=== PATIENT | female | born 1970 | race Caucasian/White ===

== ENCOUNTER 2016-11-03 12:38 | Emergency (ER) | payer MEDICAID ==
--- NOTE | 2016-11-03 13:41 | Emergency Department Record ---
History of Present Illness - General Chief complaint: Pain Stated complaint: ABD PAIN Time Seen by Provider: 11/03/16 13:18 Source: Patient, RN notes reviewed Mode of Arrival: Ambulatory - History of Present Illness Initial comments: fibromyalgia and she ran out of percocet 3 days ago and has been on percocet for 5 years. 10 mg/325 one every 4 hours and currently she took extra because of a flare and ran out of meds. She would like to get off the percocet but now is in withdrawal of the narcotics and she could not get through to Dr. Linda. Diarrhea times 10 over the last 24 hours ago. tremors and jumping out of skin. bilateral leg and arm pain. Total body pain Onset/Timin -: Hour(s) Location: Other History of Same: No Severity scale (1-10): 10 Quality: Sharp Consistency: Constant Improves with: Nothing Worsens with: Nothing Associated Symptoms: Arthralgias, Other - Related Data Home Medications Medication Instructions Recorded Confirmed Last Taken Oxycodone HCl/Acetaminophen 1 each PO Q6H 06/24/14 11/03/16 11/03/16 [Percocet 10-325 mg Tablet] Duloxetine HCl [Cymbalta] 60 mg PO DAILY 11/03/16 11/03/16 11/03/16 Previous Rx's Medication Instructions Recorded Oxycodone HCl/Acetaminophen 1 tab PO Q6H PRN #30 tablet 11/03/16 [Percocet 10mg/325mg] Allergies Allergy/AdvReac Type Severity Reaction Status Date / Time No Known Drug Allergies Allergy Verified 11/03/16 12:50 Travel Screening - Travel/Exposure Within Last 30 Days Have you traveled within the last 30 days?: No - Travel/Exposure Within Last Year Have you traveled outside the [place] in the last year?: No - Additonal Travel Details Have you been exposed to anyone with a communicable illness?: No - Travel Symptoms Symptom Screening: None Review of Systems Reviewed: No additional complaints except as noted below Constitutional: Reports: As per HPI. Denies: Chills, Fever, Malaise, Night sweats, Weakness, Weight change Eyes: Reports: As per HPI. Denies: Eye discharge, Eye pain, Photophobia, Vision change ENT: Reports: As per HPI. Denies: Congestion, Dental pain, Ear pain, Epistaxis , Hearing loss, Throat pain Respiratory: Reports: As per HPI. Denies: Cough, Dyspnea, Hemoptysis, Stridor, Wheezes Cardiovascular: Reports: As per HPI. Denies: Arrhythmia, Chest pain, Dyspnea on exertion, Edema, Murmurs, Orthopnea, Palpitations, Paroxysmal nocturnal dyspnea, Rheumatic Fever, Syncope Endocrine: Reports: As per HPI. Denies: Fatigue, Heat or cold intolerance, Polydipsia, Polyuria Gastrointestinal: Reports: As per HPI. Denies: Abdominal pain, Constipation, Diarrhea, Hematemesis, Hematochezia, Melena, Nausea, Vomiting Genitourinary: Reports: As per HPI. Denies: Abnormal menses, Discharge, Dyspareunia, Dysuria, Frequency, Hematuria, Incontinence, Retention, Urgency Musculoskeletal: Reports: As per HPI. Denies: Arthralgia, Back pain, Gout, Joint swelling, Myalgia, Neck pain Skin: Reports: As per HPI. Denies: Bruising, Change in color, Change in hair/ nails, Lesions, Pruritus, Rash Neurological: Reports: As per HPI, Tremors. Denies: Abnormal gait, Confusion, Headache, Numbness, Paresthesias, Seizure, Tingling, Vertigo, Weakness Psychiatric: Reports: As per HPI. Denies: Anxiety, Auditory hallucinations, Depression, Homicidal thoughts, Suicidal thoughts, Visual hallucinations Hematological/Lymphatic: Reports: As per HPI. Denies: Anemia, Blood Clots, Easy bleeding, Easy bruising, Swollen glands Past Medical History - SOCIAL HISTORY Smoking Status: Never smoker Alcohol Use: Occasional Drug Use: None - RESPIRATORY Hx Respiratory Disorders: No - CARDIOVASCULAR Hx Cardio Disorders: No - NEURO Hx Neuro Disorders: No - GI Hx GI Disorders: No - Hx Genitourinary Disorders: No Comment:: heavy periods twice a month. - ENDOCRINE Hx Endocrine Disorders: No - MUSCULOSKELETAL Hx Musculoskeletal Disorders: Yes Hx Arthritis: Yes Hx Fibromyalgia: Yes Comment:: DDD - PSYCH Hx Psych Problems: No - HEMATOLOGY/ONCOLOGY Hx Hematology/Oncology Disorders: No Family Medical History Any Significant Family History?: Yes Hx HTN: Father, Grandparents Physical Exam - General General Appearance: Alert, Oriented x3, Cooperative, No acute distress - Head Head exam: Normal inspection - Eye Eye exam: Normal appearance, PERRL Pupils: Normal accommodation - ENT ENT exam: Normal exam, Mucous membranes moist, Normal external ear exam, Normal orophraynx, TM's normal bilaterally Ear exam: Normal external inspection. negative: External canal tenderness Nasal Exam: Normal inspection. negative: Discharge, Sinus tenderness Mouth exam: Normal external inspection, Tongue normal Teeth exam: Normal inspection. negative: Dental caries Throat exam: Normal inspection. negative: Tonsillar erythema, Tonsillar exudate - Neck Neck exam: Normal inspection, Full ROM. negative: Tenderness - Respiratory Respiratory exam: Normal lung sounds bilaterally. negative: Respiratory distress - Cardiovascular Cardiovascular Exam: Regular rate, Normal rhythm, Normal heart sounds - GI/Abdominal GI/Abdominal exam: Soft, Normal bowel sounds. negative: Tenderness - Rectal Rectal exam: Deferred - exam: Deferred - Extremities Extremities exam: Normal inspection, Full ROM, Normal capillary refill. negative: Tenderness - Back Back exam: Reports: Normal inspection, Full ROM. Denies: Muscle spasm, Rash noted, Tenderness - Neurological Neurological exam: Alert, Normal gait, Oriented X3, Reflexes normal - Psychiatric Psychiatric exam: Normal affect, Normal mood - Skin Skin exam: Dry, Intact, Normal color, Warm Course Vital Signs 11/03/16 12:52 Temperature 98.6 F Pulse Rate 86 Respiratory 18 Rate Blood Pressure 138/89 Pulse Ox 97 Patient is feeling much better and wants to go home to follow up with Dr. Linda to wean off percocet Medical Decision Making - Lab Data Result diagrams: 11/03/16 14:05 11/03/16 14:05 Disposition Clinical Impression: Myalgia, Narcotic withdrawal Disposition: Home, Self-Care Condition: (1) Good Instructions: Opioid Withdrawal (ED) Additional Instructions: decrease percocet to every 6 hours and follow up with Dr. Linda next week to continue withdrawal of meds Prescriptions: Oxycodone HCl/Acetaminophen [Percocet 10mg/325mg] 1 tab PO Q6H PRN #30 tablet PRN Reason: Analgesia Forms: Patient Portal Access Time of Disposition: 14:40 Quality - Quality Measures Quality Measures: N/A - Blood Pressure Screening Blood Pressure Classification: Pre-Hypertensive BP Reading Systolic Measurement: 138 Diastolic Measurement: 89 Screening for High Blood Pressure: < Pre-Hypertensive BP, F/U Documented > [ G8950] Pre-Hypertensive Follow-up Interventions: Referral to alternative/primary care provider.
[2016-11-03] MEDS ORDERED: 0.9 % SODIUM CHLORIDE 1,000 ML BAG IV ONE (13:44)
[2016-11-03] MEDS ORDERED: HYDROMORPHONE HCL 1MG/ML **SYRINGE IVP ONE (13:47)
[2016-11-03] MEDS ORDERED: ONDANSETRON HCL IV 4 MG/2 ML VIAL IVP ONE (13:47)
[2016-11-03 14:13] LABS: HEMATOCRIT 40.7 % (35.0-47.0); HEMOGLOBIN 13.5 gm/dl (11.6-16.0); MEAN CELL VOLUME 95.8 fl (81-97); MEAN CORPUSCULAR HEMOGLOBIN 31.8 pg (27-33); MEAN CORPUSCULAR HGB CONC 33.2 g/dl (32-36); PLATELET COUNT 351 K/uL (130-400); RED BLOOD COUNT 4.25 M/uL (3.80-5.40); RED CELL DISTRIBUTION WIDTH 13.7 % (11.5-14.5); WHITE BLOOD COUNT W/O DIFF 10.2 K/uL (4.2-12.2)
[2016-11-03 14:26] LABS: ALBUMIN 4.3 gm/dL (3.5-5.0); ALKALINE PHOSPHATASE 67 U/L (38-126); ALT/SGPT 34 U/L (9-52); ANION GAP 8.3 (7-16); AST/SGOT 15 U/L (14-36); BILIRUBIN,TOTAL 0.83 mg/dL (0.2-1.3); BLOOD UREA NITROGEN 12 mg/dL (7-17); CARBON DIOXIDE 22.7 mmol/L (22-30); CREATININE 0.7 mg/dL (0.52-1.04); EST GLOMERULAR FILTRATION RATE > 60 ml/min; GLUCOSE,RANDOM 91 mg/dL (70-110); TOTAL PROTEIN 7.6 gm/dL (6.3-8.2)
== END 2016-11-03 14:51 | disposition home or self-care (01) ==
LOC: ER 12:38
DX: T40.2X5A Adverse effect of other opioids, initial encounter (principal); M79.7 Fibromyalgia; R19.7 Diarrhea, unspecified; R10.9 Unspecified abdominal pain
CPT/HCPCS: 99284 ×2; 96374; 96375; 80076; 80048; 85027; J2405; J1170; J7030

== ENCOUNTER 2017-08-23 16:38 | Inpatient (IN) | payer MEDICAID ==
[2017-08-23] MEDS ORDERED: METHYLPREDNISOLONE PF 125MG/VIAL IVP ONE (18:11)
[2017-08-23] MEDS ORDERED: PROMETHAZINE HCL 25 MG in 0.9 % SODIUM CHLORIDE 100ML 100 ML IVPB ONE (18:32)
[2017-08-23] MEDS ORDERED: 0.9 % SODIUM CHLORIDE 1,000 ML BAG IV ONE ×2 (18:35→19:26)
--- NOTE | 2017-08-23 18:35 | Emergency Department Record ---
History of Present Illness - General Chief Complaint: Headache Migraine Stated Complaint: MIGRAINE Time Seen by Provider: 08/23/17 17:35 Source: Patient Mode of Arrival: Ambulatory Limitations: No limitations - History of Present Illness Initial Comments: pt has a headache that is 10/10. she is taking multiple opiates without relief. she states it feels like her previous meningitis. she has had meninggitis twice, once viral and once bacterial. she has had cts and mris in the past MD Complaint: Headache Onset/Timin -: Days(s) Onset Description: Gradual Location: Diffuse, Neck, Right, Temporal Severity: Moderate Severity scale (1-10): 10 Quality: Aching, Full, Throbbing Consistency: Constant Improves With: Nothing Worsens With: None Associated Symptoms: Fever, Nausea, Neck stiffness, Photophobia Treatments Prior to Arrival: Prescription analgesic - Related Data Home Medications Medication Instructions Recorded Confirmed Last Taken Cholecalciferol (Vitamin D3) 2,000 unit PO DAILY 08/23/17 08/23/17 1 Day Ago [Vitamin D3] ~08/22/17 Oxycodone HCl [Oxy Ir] 15 mg PO QID 08/23/17 08/23/17 08/23/17 Previous Rx's Medication Instructions Recorded Oxycodone HCl/Acetaminophen 1 tab PO Q6H PRN #30 tablet 11/03/16 [Percocet 10mg/325mg] Allergies Allergy/AdvReac Type Severity Reaction Status Date / Time No Known Drug Allergies Allergy Verified 08/23/17 17:01 Travel Screening - Travel/Exposure Within Last 30 Days Have you traveled within the last 30 days?: No - Travel/Exposure Within Last Year Have you traveled outside the [place] in the last year?: No - Additonal Travel Details Have you been exposed to anyone with a communicable illness?: No - Travel Symptoms Symptom Screening: None Review of Systems Reviewed: No additional complaints except as noted below Constitutional: Reports: As per HPI. Denies: Chills, Fever, Malaise, Night sweats, Weakness, Weight change Eyes: Reports: As per HPI. Denies: Eye discharge, Eye pain, Photophobia, Vision change ENT: Reports: As per HPI. Denies: Congestion, Dental pain, Ear pain, Epistaxis , Hearing loss, Throat pain Respiratory: Reports: As per HPI. Denies: Cough, Dyspnea, Hemoptysis, Stridor, Wheezes Cardiovascular: Reports: As per HPI. Denies: Arrhythmia, Chest pain, Dyspnea on exertion, Edema, Murmurs, Orthopnea, Palpitations, Paroxysmal nocturnal dyspnea, Rheumatic Fever, Syncope Endocrine: Reports: As per HPI. Denies: Fatigue, Heat or cold intolerance, Polydipsia, Polyuria Gastrointestinal: Reports: As per HPI. Denies: Abdominal pain, Constipation, Diarrhea, Hematemesis, Hematochezia, Melena, Nausea, Vomiting Genitourinary: Reports: As per HPI. Denies: Abnormal menses, Discharge, Dyspareunia, Dysuria, Frequency, Hematuria, Incontinence, Retention, Urgency Musculoskeletal: Reports: As per HPI. Denies: Arthralgia, Back pain, Gout, Joint swelling, Myalgia, Neck pain Skin: Reports: As per HPI. Denies: Bruising, Change in color, Change in hair/ nails, Lesions, Pruritus, Rash Neurological: Reports: As per HPI, Headache. Denies: Abnormal gait, Confusion, Numbness, Paresthesias, Seizure, Tingling, Tremors, Vertigo, Weakness Psychiatric: Reports: As per HPI. Denies: Anxiety, Auditory hallucinations, Depression, Homicidal thoughts, Suicidal thoughts, Visual hallucinations Hematological/Lymphatic: Reports: As per HPI. Denies: Anemia, Blood Clots, Easy bleeding, Easy bruising, Swollen glands Past Medical History - SOCIAL HISTORY Smoking Status: Never smoker Alcohol Use: None Drug Use: None - RESPIRATORY Hx Respiratory Disorders: No - CARDIOVASCULAR Hx Cardio Disorders: No - NEURO Hx Headaches: Yes Comment:: viral and bacterila menningytis - GI Hx GI Disorders: No - Hx Genitourinary Disorders: No Comment:: heavy periods twice a month. - ENDOCRINE Hx Endocrine Disorders: No - MUSCULOSKELETAL Hx Musculoskeletal Disorders: Yes Hx Arthritis: Yes Hx Fibromyalgia: Yes Comment:: DDD, scoriatic - PSYCH Hx Psych Problems: No - HEMATOLOGY/ONCOLOGY Hx Hematology/Oncology Disorders: No Family Medical History Any Significant Family History?: Yes Hx HTN: Father, Grandparents Physical Exam - General General Appearance: Alert, Oriented x3, Cooperative, Mild distress - Head Head exam: Normal inspection - Eye Eye exam: Normal appearance, PERRL, EOMI Pupils: Normal accommodation - ENT ENT exam: Normal exam, Mucous membranes moist, Normal external ear exam, Normal orophraynx Ear exam: Normal external inspection. negative: External canal tenderness Nasal Exam: Normal inspection. negative: Discharge, Sinus tenderness Mouth exam: Normal external inspection, Tongue normal Teeth exam: Normal inspection. negative: Dental caries Throat exam: Normal inspection. negative: Tonsillar erythema, Tonsillar exudate - Neck Neck exam: Normal inspection, Full ROM. negative: Tenderness - Respiratory Respiratory exam: Normal lung sounds bilaterally. negative: Respiratory distress - Cardiovascular Cardiovascular Exam: Regular rate, Normal rhythm, Normal heart sounds - GI/Abdominal GI/Abdominal exam: Soft, Normal bowel sounds. negative: Tenderness - Rectal Rectal exam: Deferred - exam: Deferred - Extremities Extremities exam: Normal inspection, Full ROM, Normal capillary refill. negative: Tenderness - Back Back exam: Reports: Normal inspection, Full ROM. Denies: Muscle spasm, Rash noted, Tenderness - Neurological Neurological exam: Alert, CN II-XII intact, Normal gait, Oriented X3 - Psychiatric Psychiatric exam: Normal affect, Normal mood - Skin Skin exam: Dry, Intact, Normal color, Warm Course Vital Signs 08/23/17 16:47 Temperature 99.0 F Pulse Rate 91 H Respiratory 18 Rate Blood Pressure 112/88 Pulse Ox 98 Procedures - Lumbar Puncture Consent Obtained: Written consent Time Out Performed: Yes Indication for Procedure: Headache Patient Position: Sitting upright/leaning forward Skin Prep: 0.5% Chlorhexidine/Alcohol, Povidone-Iodine 1% Local Anesthetic Used: Lidocaine 1% Amount of anesthesia used (mls): 3 Spinal Needle Gauge: 20G Spinal Needle Length: 3in Interspace Used: L4-L5 Fluid Initially Obtained: Clear Complications: None Patient Tolerated Procedure: Good, No complications Medical Decision Making - Lab Data Result diagrams: 08/23/17 18:32 08/23/17 18:32 Disposition Disposition: Admit Clinical Impression: Meningitis Disposition: Still a Patient at [facility] Decision to Admit: Admit from ER Decision to Admit Date: 08/23/17 Decision to Admit Time: 20:05 Forms: Patient Portal Access Quality - Quality Measures Quality Measures: Headache (All Ages) - Headache: Neuroimaging Quality Measure: Measure #419: Overuse of Neuroimaging Neurological Exam: Patient had a normal neurological exam. [G9535] Headache: Use of Neuroimaging: CTA, CT, MRA or MRI Ordered w/Medical Reason [ G9536] Medical Reason for Exam: Change in Type of Headache - Blood Pressure Screening Does Patient Have Any of the Following: No Blood Pressure Classification: Pre-Hypertensive BP Reading Systolic Measurement: 112 Diastolic Measurement: 88 Screening for High Blood Pressure: < Pre-Hypertensive BP, F/U Documented > [ G8950] Pre-Hypertensive Follow-up Interventions: Follow-up with rescreen every year.
[2017-08-23 18:38] LABS: BASO % 0.4 % (0-6); EOS % 3.9 % (0-6); GRAN % 69.8 % (47-80); HEMATOCRIT 38.9 % (35.0-47.0); HEMOGLOBIN 12.4 gm/dl (11.6-16.0); LYMPH % 19.5 % (16-45); MEAN CELL VOLUME 92.4 fl (81-97); MEAN CORPUSCULAR HEMOGLOBIN 29.5 pg (27-33); MEAN CORPUSCULAR HGB CONC 31.9 g/dl (32-36); MEAN PLATELET VOLUME 9.9 fl (7.4-10.4); MONO % 6.4 % (0-9); PLATELET COUNT 325 K/uL (130-400); RED BLOOD COUNT 4.21 M/uL (3.80-5.40); RED CELL DISTRIBUTION WIDTH 14.5 % (11.5-14.5); WHITE BLOOD COUNT W/O DIFF 9.8 K/uL (4.2-12.2)
[2017-08-23 18:48] LABS: BLOOD UREA NITROGEN 7 mg/dL (6-20); CREATININE 0.7 mg/dL (0.5-0.9); EST GLOMERULAR FILTRATION RATE > 60 mL/min
[2017-08-23 18:49] LABS: TOTAL PROTEIN 7.3 g/dL (6.6-8.7)
[2017-08-23 18:51] LABS: GLUCOSE,RANDOM 99 mg/dL (74-109)
[2017-08-23 18:53] LABS: ALB/GLOB RATIO 1.4 (1.1-1.8); ALBUMIN 4.2 g/dL (4.0-5.0); ALT/SGPT 11 U/L (<33); AST/SGOT 18 U/L (10.0-35.0)
[2017-08-23 18:54] LABS: ALKALINE PHOSPHATASE 56 U/L (35-104)
[2017-08-23 19:30] LABS: ERYTHROCYTE SEDIMENTATION RATE 16 mm/hr (0-20)
[2017-08-23 19:31] LABS: TOTAL PROTEIN,CSF 108.2 mg/dL (15.0-45.0)
[2017-08-23 19:50] LABS: CSF APPEARANCE CLEAR; CSF COLOR COLORLESS
[2017-08-23] MEDS ORDERED: CEFTRIAXONE SODIUM 2 GM in 0.9 % SODIUM CHLORIDE 100ML 100 ML IVPB ONE (19:51)
[2017-08-23 19:56] LABS: CSF RBC 32.8 /mm3; CSF WBC 99.4 /uL
[2017-08-23] MEDS ORDERED: HYDROMORPHONE HCL 2 MG/ML VIAL IVP ONE (19:58)
[2017-08-23] MEDS: VANCOMYCIN HCL 1,000 MG in 0.9 % SODIUM CHLORIDE 250ML 250 ML IVPB ONE (20:17)
[2017-08-23] MEDS ORDERED: ONDANSETRON HCL IV 4 MG/2 ML VIAL IVP PRN (21:01)
[2017-08-23] MEDS ORDERED: HYDROMORPHONE HCL 2 MG/ML VIAL IVP PRN (21:01)
[2017-08-23] MEDS: ACETAMINOPHEN 500 MG TABLET PO PRN (21:33)
[2017-08-23] MEDS: CEFTRIAXONE SODIUM 2 GM in 0.9 % SODIUM CHLORIDE 100ML 100 ML IVPB SCH (21:59)
[2017-08-23] MEDS ORDERED: DULOXETINE HCL 30 MG CAPSULE.DR PO SCH (22:00)
[2017-08-23] MEDS: 0.9 % SODIUM CHLORIDE 1000ML 1,000 ML IV PRN (22:00)
[2017-08-23] MEDS ORDERED: PROMETHAZINE HCL 25 MG/ML VIAL IVP PRN (23:09)
[2017-08-23] MEDS: ACYCLOVIR SODIUM IVPB SCH (23:48)
[2017-08-23] MEDS: HYDROMORPHONE HCL 2 MG/ML VIAL IVP PRN (23:48)
[2017-08-23] MEDS: SODIUM CHLORIDE 0.9% IVPB SCH (23:48)
[2017-08-24] MEDS: HYDROMORPHONE HCL 2 MG/ML VIAL IVP PRN ×2 (02:15→06:18)
[2017-08-24] MEDS: ACETAMINOPHEN 500 MG TABLET PO PRN (06:18)
[2017-08-24] MEDS: SODIUM CHLORIDE 0.9% IVPB SCH (06:22)
[2017-08-24] MEDS: ACYCLOVIR SODIUM IVPB SCH (06:22)
[2017-08-24] MEDS: 0.9 % SODIUM CHLORIDE 1000ML 1,000 ML IV PRN (06:45)
[2017-08-24 06:49] LABS: HEMATOCRIT 36.4 % (35.0-47.0); HEMOGLOBIN 11.3 gm/dl (11.6-16.0); LYMPH % 12.1 % (16-45); MEAN CELL VOLUME 93.6 fl (81-97); MEAN PLATELET VOLUME 10.7 fl (7.4-10.4); PLATELET COUNT 293 K/uL (130-400); RED BLOOD COUNT 3.89 M/uL (3.80-5.40); RED CELL DISTRIBUTION WIDTH 14.3 % (11.5-14.5); WHITE BLOOD COUNT W/O DIFF 3.9 K/uL (4.2-12.2)
[2017-08-24 07:06] LABS: ALB/GLOB RATIO 1.5 (1.1-1.8); ALBUMIN 3.8 g/dL (4.0-5.0); ALKALINE PHOSPHATASE 50 U/L (35-104); ALT/SGPT 8 U/L (<33); AST/SGOT 11 U/L (10.0-35.0); BILIRUBIN,TOTAL < 0.20 mg/dL (0.2-1.0); BLOOD UREA NITROGEN 7 mg/dL (6-20); CREATININE 0.5 mg/dL (0.5-0.9); EST GLOMERULAR FILTRATION RATE > 60 mL/min; GLUCOSE,RANDOM 145 mg/dL (74-109); TOTAL PROTEIN 6.3 g/dL (6.6-8.7)
--- NOTE | 2017-08-24 07:30 | CT SCAN REPORT ---
EXAM: CT OF THE HEAD WITHOUT CONTRAST HISTORY: MIGRAINE HEADACHE FOR TWO DAYS WITHOUT IMPROVEMENT. TECHNIQUE: Routine noncontrast CT examination of the head was obtained. Comparison: None. FINDINGS: The ventricles and subarachnoid spaces are normal in size. No suspicious area of abnormally increased or decreased attenuation is noted throughout the brain substance. Benign basal ganglia calcification is noted on the right. No extraaxial fluid collection is seen. No skull abnormality. The visualized paranasal sinuses and mastoid air cells are clear. The orbits as visualized are unremarkable. IMPRESSION: NEGATIVE NONCONTRAST CT APPEARANCE OF THE HEAD. JOB NUMBER: [id number] [facility]
[2017-08-24] MEDS ORDERED: METHYLPREDNISOLONE PF 125MG/VIAL IVP ONE (08:24)
[2017-08-24] MEDS: CEFTRIAXONE SODIUM 2 GM in 0.9 % SODIUM CHLORIDE 100ML 100 ML IVPB SCH (09:01)
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
[2017-08-24] MEDS ORDERED: OXYCODONE/APAP 10MG-325MG TABLET PO PRN (09:04)
--- NOTE | 2017-08-24 09:43 | Discharge Summary ---
Providers Discharge Summary Date: 08/24/17 Date of admission: 08/23/17 20:45 Expected Date of Discharge: 08/24/17 Attending physician: LAURE DAVIS Primary care physician: Sailaja CLARK D.O. Physical Exam - Vital Signs Vital Signs: Vital Signs - Last 24 Hrs Temp Pulse Pulse Resp BP BP BP 08/24/17 09:02 98.1 F 62 18 113/61 08/24/17 06:00 97.6 F 63 20 115/68 08/24/17 00:02 97.5 F L 78 18 112/66 08/23/17 21:00 97.5 F L 87 18 126/78 08/23/17 20:17 88 18 106/66 08/23/17 19:28 82 18 121/76 08/23/17 16:47 99.0 F 91 H 18 112/88 Pulse Ox 08/24/17 09:02 96 08/24/17 06:00 98 08/24/17 00:02 95 08/23/17 21:00 98 08/23/17 20:17 98 08/23/17 19:28 100 08/23/17 16:47 98 - General General Appearance: Alert, Oriented x3, Cooperative, No acute distress Limitations: No limitations - Head Head exam: Normal inspection - Eye Eye exam: Normal appearance, PERRL, EOMI Pupils: Normal accommodation - ENT ENT exam: Normal exam, Mucous membranes moist, Normal external ear exam, Normal orophraynx Ear exam: Normal external inspection. negative: External canal tenderness Nasal Exam: Normal inspection. negative: Discharge, Sinus tenderness Mouth exam: Normal external inspection, Tongue normal Teeth exam: Normal inspection. negative: Dental caries Throat exam: Normal inspection. negative: Tonsillar erythema, Tonsillar exudate - Neck Neck exam: Normal inspection, Meningismus, Tenderness - Respiratory Respiratory exam: Normal lung sounds bilaterally. negative: Respiratory distress - Cardiovascular Cardiovascular Exam: Regular rate, Normal rhythm, Normal heart sounds - GI/Abdominal GI/Abdominal exam: Soft, Normal bowel sounds. negative: Tenderness - Rectal Rectal exam: Deferred - exam: Deferred - Extremities Extremities exam: Normal inspection, Full ROM, Normal capillary refill. negative: Tenderness - Back Back exam: Reports: Normal inspection, Full ROM. Denies: Muscle spasm, Rash noted, Tenderness - Neurological Neurological exam: Alert, CN II-XII intact, Normal gait, Oriented X3 - Psychiatric Psychiatric exam: Normal affect, Normal mood - Skin Skin exam: Dry, Intact, Normal color, Warm Hospitalization - Hospitalization Admission Diagnosis: meningitis - Problem List/Discharge Diagnosis (1) Meningitis Current Visit: Yes Status: Acute Base Code: G03.9 - MENINGITIS, UNSPECIFIED Comment: 08/24/17- CSF with TWBC of 99.4 with 99% lymphocytes suspecting viral meningitis. CSF was sent for stain, cultures, and HSV pcr. patient remains afebrile and headache is down to 7/10. Acyclovir was ordered, however, IV not carried on our formulary. -continue Solumedrol 125mg q8h. last dose received at 9:00am -continue rocephin 2gm IV q12H. Last dose administered at 9:10am -continue IV vanco 1gm. Received last dose at 9:30 -Discussed case with Dr. Mayberry and will accept for acute care transfer since her needs cannot be met at our hospital. patient stable for transfer -Our lab was informed about transfer and we will ensure [place] [facility] made [place] (2) Full code status Current Visit: Yes Status: Acute Base Code: Z78.9 - OTHER SPECIFIED HEALTH STATUS Comment: 08/24/17- patient is full code - Disposition [place] [facility] Hospitalization Course Disposition: Acute Care Hospital Transfer Hospital Course: 47yo female with CC of severe headache and neck stiffness. Has history of viral and bacterial meningitis. Patient started having pins and needles in her back, arms and legs 2-3 days ago. This progressed to neck pain and stiffness and then began having headache. This felt similar to previous episodes of meningitis so came to the ED. While in the ED, temp was 99, pulse was 91, bp 112/88, rr of 18, and o2 sat was 98%. She had CT head that was negative for acute process. CBC showed wbc count of 9.8. Underwent lumbar puncture. CSF showed total WBC of 99.4 with 99% lymphocytes, glucose of 48 and protein of 108.2. CSF sent for culture, stain, HSV pcr. She was given one dose of solumedrol 125mg IV, started on rocephin 2gm q12H and given one dose of vanc 1000mg and admitted for suspected viral meningitis. 08/24/17- patient states her headache is down to 7/10 from 10/10 last evening. Continues to have severe back pain in between her shoulder blades and stiffness of her neck. she was able to get some sleep last night. Denies any nausea/ vomiting, vision change, confusion, weakness or numbness. She could not recall if she had been diagnosed with HSV in the past. pcp: Pedro Luis Procedures: Imaging and X-Rays 08/23/17 18:08 HEAD WO CONTRAST [CT] Stat Abnormal Labs: Abnormal Lab Results 08/23/17 08/23/17 08/24/17 Range/Units 18:32 19:15 06:09 WBC 3.9 L (4.2-12.2) K/uL Hgb 11.3 L (11.6-16.0) gm/dl MCHC 31.9 L 31.0 L (32-36) g/dl MPV 10.7 H (7.4-10.4) fl Neutrophils % 87.0 H (47-80) % Lymphocytes % 12.1 L (16-45) % Lymphocytes 13.0 L (16-45) % Random Glucose (74-109) mg/dL Calcium (8.6-10.0) mg/dL Total Bilirubin (0.2-1.0) mg/dL Total Protein (6.6-8.7) g/dL Albumin (4.0-5.0) g/dL CSF Total Protein 108.2 H (15.0-45.0) mg/dL 08/24/17 Range/Units 06:09 WBC (4.2-12.2) K/uL Hgb (11.6-16.0) gm/dl MCHC (32-36) g/dl MPV (7.4-10.4) fl Neutrophils % (47-80) % Lymphocytes % (16-45) % Lymphocytes (16-45) % Random Glucose 145 H (74-109) mg/dL Calcium 8.3 L (8.6-10.0) mg/dL Total Bilirubin < 0.20 L (0.2-1.0) mg/dL Total Protein 6.3 L (6.6-8.7) g/dL Albumin 3.8 L (4.0-5.0) g/dL CSF Total Protein (15.0-45.0) mg/dL Condition at Discharge: (2) Stable Discharge Medications - Discharge Medications Home Medications: Ambulatory Orders Duloxetine HCl [Cymbalta] 60 mg PO DAILY 11/03/16 [Last Taken 1 Day Ago ~] Cholecalciferol (Vitamin D3) [Vitamin D3] 2,000 unit PO DAILY 08/23/17 [Last Taken 1 Day Ago ~08/22/17] Oxycodone HCl [Oxy Ir] 15 mg PO QID 08/23/17 [Last Taken 08/23/17] Discharge Plan - Discharge Instructions Quality Measures - Quality Measures Quality Measures: Documentation of Current Medications in Medical Record, Screening for High Blood Pressure and F/U Documented - Current Medications Quality Measure: Measure #130: Documentation of Current Medications Documentation of Current Medications: <Current Medications Documented/Reviewed> [G8427] - Blood Pressure Screening Quality Measure: Screening for High Blood Pressure and Follow-Up Documented Does Patient Have Any of the Following: No Blood Pressure Classification: Pre-Hypertensive BP Reading Systolic Measurement: 112 Diastolic Measurement: 88 Screening for High Blood Pressure: < Pre-Hypertensive BP, F/U Documented > [ G8950] Pre-Hypertensive Follow-up Interventions: Follow-up with rescreen every year. - Elder Abuse Suspicion Index EASI Reference Information: Rom JUSTICE, Josh C, Tomeka D, Erick Howard.Development and validation of a tool to assist physicians identification of elder abuse: The Elder Abuse Suspicion Index (EASI ). Journal of Elder Abuse and Neglect, 2008; 20 (3): 276-300.
[2017-08-24] MEDS: VANCOMYCIN HCL 1,000 MG in 0.9 % SODIUM CHLORIDE 250ML 250 ML IVPB ONE (09:49)
[2017-08-25 00:13] LABS: SPECIMEN TYPE CSF
== END 2017-08-24 10:00 | disposition short-term general hospital (02) | DRG 76 ==
LOC: ER 16:38 → MEDSURG 20:45
PROVIDERS: ADMIT Internal Medicine; ATTEND Internal Medicine
DX: A87.9 Viral meningitis, unspecified (principal); L40.50 Arthropathic psoriasis, unspecified; M79.7 Fibromyalgia; F17.210 Nicotine dependence, cigarettes, uncomplicated
CPT/HCPCS: 62270; 70450; 80053; 82945; 84157; 85025; 85027; 85651; 87205; 89051; 96365; 96366; 96375; 99223; 99285; J2550; J2930; J7030; J7050